=== PATIENT | female | born 1955 | race Two or more races ===

== ENCOUNTER 2025-03-24 08:53 | Outpatient (AMB) | payer MEDICARE, MEDICAID, SELFPAY ==
[2025-03-24 09:12] VITALS: BP 129/63; PULSE 69; RESP 18; TEMP 36.7; O2SAT 95; BMI 37.3
--- NOTE | 2025-03-24 09:12 | PD.ORTHCLVIS ---
Vital signs 03/24/25 09:12 Height 1.62 m Height Method Measured Weight 98.004 kg Weight Measurement Method Standing Scale BMI 37.3 BP 129/63 Blood Pressure Source Automatic Cuff Blood Pressure Location Left Upper Arm Position Sitting Respiration 18 Pulse 69 Pulse Source Monitor Temp 98.1 F Temp Source Temporal Artery Scan Pulse Oximetry (%) 95 Oxygen Delivery Method Room Air Med/Allergies Allergies & Medications Allergies No Known Allergies Allergy (Verified 03/24/25 09:13) Medication Reconciliation atorvastatin 20 mg tablet 40 mg (2 x 20 mg) PO HS 30 days #60 tabs 06/30/17 [Rx Confirmed 03/24/25] diltiazem HCl 240 mg capsule,extended release 24 hr (Cardizem CD) 240 mg PO QAM 03/24/25 [History Confirmed 03/24/25] empagliflozin 25 mg tablet (Jardiance) 25 mg PO QAM 03/24/25 [History Confirmed 03/24/25] gabapentin 100 mg capsule 100 mg PO QDAY 03/24/25 [History Confirmed 03/24/25] losartan 100 mg tablet 100 mg PO QDAY 03/24/25 [History Confirmed 03/24/25] metformin 500 mg tablet 500 mg PO QDAY 03/24/25 [History Confirmed 03/24/25] tirzepatide 2.5 mg/0.5 mL subcutaneous pen injector (Mounjaro) 2.5 mg subcut QWEEK 03/24/25 [History Confirmed 03/24/25] Exam Exam Patient is in no acute distress and is cooperative with the examination today. Breathing is nonlabored. In no respiratory distress. Patient has no paraspinal tenderness. Spinal deformity cannot be appreciated. The gait of the patient is nonantalgic Bilateral extremities were evaluated and demonstrates sensation intact to light touch. Palpable pedal pulses are present. No significant edema is present. Bilateral knees were examined and the patient has full strength and range of motion.. The left hip was examined. Patient was able to flex to 90 degrees, adduct to 30 degrees, abduct to 40 degrees, internally rotate to 20 degrees, and externally rotate to 20 degrees. Patient has a negative logroll. Stinchfield is negative. The patient is nontender diffusely to touch. The right hip was examined. The patient has no motion in her hip. X-ray report from family of her network demonstrates apparent ankylosis of the right hip. This cannot be viewed by me today Assessment and Plan Problem List (1) Back pain: Status: Acute Plan: Patient is a 69-year-old female who presents today for evaluation for a right total hip replacement according to the referral. She actually has no pain in her hip at all. She had a fusion when she was 16 in [facility]. I have no x-rays to review today. The likely cause of her pain is likely her spine as it starts in the low back and radiates all the way down her right leg. I would like to get x-rays of her right hip and back and we will go from there Advanced Care Planning Discussion Advance care planning discussed with:: patient Office Procedures GNS Level of Care Nursing/Assessment Patient Status: Initial/New Patient Nursing Assessment/Reassesment: Medication Reconciliation, Update PMH in EMR and Vital Signs Coordination of Care: Complex Care and Chronic Disease 1-5, Education Complex Pt/Fam, Consent,records obtained, informed consent, Lab and Imaging orders, Results/Orders obtained and Staff clarify orders Special Needs: Language special needs New Patient Charge New Patient Point Assignment: 1109 New Patient Point Charge: STUDIO CONTROL OPERATOR Level 3 ([id number]) MA Intake Visit Data Collection New Patient or Established: New Patient (never been to [facility]) Reason for Visit:: RIGHT HIP PAIN Seen by Clinical Staff ONLY (RN/MA): No Director Plans Required: Yes PCP or OBGYN visit in last 3 months: Yes Hx Now: No Do You Feel Safe at Home: Yes Authorities Contacted: N/A Questionairres Past Medical History Past Medical History Have you ever been diagnosed with any of the following: Cardiology Problems Hypercholesterolemia: Yes Congestive Heart Failure: No Hypertension: Yes Respiratory Problems Chronic Obstructive Pulmonary Disease (COPD): No Asthma: No Bronchitis: Yes Stomache/Intestinal Problems Obesity: Yes Genital/Urinary Problems Renal Disease: Yes Kidney Stones: Yes Musculoskeletal Problems Arthritis: Yes Endocrine Problems Diabetes Mellitus Type 1: No Diabetes Mellitus Type 2: Yes Blood Problems Sickle Cell Disease: No Psychologic Problems Anxiety: Yes Subjective Visit Visit for: new patient and hip Immunization / Flu Flu Vaccine in the Last 12 Months: Yes Flu Vaccine Exclusion Criteria: Already Received History of Present Illness Chief complaint: RIGHT HIP PAIN Date of injury / onset of symptoms: 40 YEARS AGO HISTORY OF PRESENT ILLNESS I, Barak Chand, have obtained verbal consent from the patient, to be recorded during this encounter which may include, but not limited to, medical history, examination, treatment plans, and relevant health information.? Patient was informed that recording will be read and reviewed by myself before inclusion in the medical chart. The patient is a 69-year-old female who presents today with right hip pain that she has had for the last 40 years. To clarify, the pain is in the back and radiates down the entire leg. She has no pain in her groin She had hip surgery when she was 16 on the right side. She has not had injections, physical therapy, or tried anti-inflammatory medications. She has a history of diabetes, chronic kidney disease stage III, hypertension, anemia, and multiple medical comorbidities. She is also found to have severe arterial occlusive disease. She smokes cigarettes. She reports experiencing pain in her lower back, hip, and knee, with no discomfort in the groin area. She describes her hip as being very stiff. She has been proactive in seeking medical attention, including presenting her imaging results to various physicians, but has not received any referrals. PAST SURGICAL HISTORY: Hip surgery at age 16 Personal History Occupation: RETIRED Red flag PMH: smoker BMI Counceling provided: No Pain Pain level (0-10): 6 Pain location: buttock Pain quality: sharp, burning and tingling Pain timing: increases with activity and stairs Associated signs & symptoms: stiffness Ambulatory data Ambulatory device: cane Walking distance (minutes): 2 Treatments Number of previous injections: 0 Improvement with previous injections: No Number of Physical Therapy sessions: 0 Improvement with PT: No Improvement with NSAIDS: no Review of Systems Review of Systems: All systems negative unless otherwise noted in HPI.
== END 2025-03-24 09:23 | disposition home or self-care (01) ==
PROVIDERS: PCP Physician Assistant; Referring Provider Physician Assistant; Supervising Provider Orthopaedic Surgery Adult Reconstructive Orthopaedic Surgery; Visit Provider Orthopaedic Surgery Adult Reconstructive Orthopaedic Surgery
DX: M25.551 Pain in right hip (principal); M25.561 Pain in right knee; M54.9 Dorsalgia, unspecified; I12.9 Hypertensive chronic kidney disease with stage 1 through stage 4 chronic kidney disease, or unspecified chronic kidney disease; E11.22 Type 2 diabetes mellitus with diabetic chronic kidney disease; N18.30 Chronic kidney disease, stage 3 unspecified; D63.1 Anemia in chronic kidney disease; I70.90 Unspecified atherosclerosis; F17.210 Nicotine dependence, cigarettes, uncomplicated; E66.9 Obesity, unspecified; Z68.37 Body mass index [BMI] 37.0-37.9, adult; Z79.84 Long term (current) use of oral hypoglycemic drugs
CPT/HCPCS: 99203; G0463